=== PATIENT | female | born 1980 | race Caucasian/White ===

== ENCOUNTER → 2016-07-10 | Outpatient (CLI) | payer OTHER ==
[2016-07-10 17:26] LABS: Basophils % (A) 1 %; CH 31.1; CHCM 33.9; Eosinophils # (A) 0.1 k/uL (0-0.7); Eosinophils % (A) 2 %; HCT 40.9 % (34.0-46.0); HDW 2.69; HGB 13.7 gm/dL (11.4-16.0); Luc # (Auto) 0.06; Luc % (Auto) 1; Lymphocytes # (A) 2.2 k/uL (1.0-4.8); Lymphocytes % (A) 43 %; MCHC 33.5 g/dL (31.0-37.0); MCV 92.4 fL (80.0-100.0); Mean Platelet Volume 7.1; Monocytes # (A) 0.2 k/uL (0-1.0); Monocytes % (A) 5 %; Neutrophils # (A) 2.4 k/uL (1.3-7.7); Neutrophils % (A) 48 %; RBC 4.42 m/uL (3.80-5.40); RDW 12.4 % (11.5-15.5); WBC (Perox) 5.38
[2016-07-10 17:44] LABS: Anion Gap 14 mmol/L; Blood Urea Nitrogen 11 mg/dL (7-17); Carbon Dioxide 27 mmol/L (22-30); Chloride 104 mmol/L (98-107); Glucose 88 mg/dL (74-99); Non-African American GFR(MDRD) >60 (>60 ml/min/1.73 sqM); Potassium 3.6 mmol/L (3.5-5.1); Sodium 145 mmol/L (137-145)
== END | disposition home or self-care (01) ==
LOC: LABPAT 17:03
PROVIDERS: ATTEND Obstetrics & Gynecology
DX: Z01.812 Encounter for preprocedural laboratory examination (principal); D06.9 Carcinoma in situ of cervix, unspecified
CPT/HCPCS: 80051; 82565; 82947; 84520; 85025; 87086

== ENCOUNTER 2016-07-16 05:43 | Observation (INO) | payer OTHER ==
--- NOTE | 2016-07-09 14:21 | HP ---
DATE OF ADMISSION: This is a 35-year-old white female, 2, para 2-0-0-2 who on her routine gynecologic Pap smear on 04/12/2016 was noted to have low-grade lesion. Colposcopy in the office on 05/15/2016 revealed biopsies consistent with high grade MARTHA, ECC revealing adenocarcinoma in situ. The patient underwent conization under my care at [facility]. Subsequently, pathology report reveals positive ECC for adenocarcinoma in situ, margins of the cold knife conization are otherwise negative. This was performed on 06/11/2016. After thorough consultation, the patient is electing to proceed with vaginal hysterectomy. We have reviewed in detail the risks, benefits and alternatives of this plan. Review of systems is otherwise negative. She has had a tubal ligation in the past. PAST MEDICAL HISTORY: Significant for Hodgkin's lymphoma, in remission. PAST SURGICAL HISTORY: Diagnostic laparoscopy in 1997, hysteroscopy and NovaSure ablation and tubal ligation in the past, Port-A-Cath placed and removed, cold knife conization June 2016. CURRENT MEDICATIONS: None. ALLERGIES INCLUDE MACROBID TO WHICH SHE REPORTS NAUSEA, PENICILLIN TO WHICH SHE REPORTS NAUSEA, RASH AND HIVES, AND SUPRAX TO WHICH SHE REPORTS A RASH. FAMILY HISTORY: Significant for diabetes, shingles and stroke. Reproductive history: Patient has had 2 normal spontaneous vaginal delivery, a male and female infants, both healthy and well. SOCIAL HISTORY: Significant for alcohol 1 to 4 times weekly, she is currently single. She is a current smoker, smoking 1/2 pack per day tobacco and has been a smoker for many years, she denies any history of any other recreational drug use. On exam, this is a pleasant white female, 5 feet 7 inches, 156 pounds, BMI is 24, blood pressure 128/82. The general physical exam is within normal limits. HEENT exam reveals normal trachea in the midline, no thyromegaly or cervical lymphadenopathy, good dentition. Breasts are bilaterally symmetric with no skin dimpling, nipple discharge, axillary adenopathy, or any discernible lesions or masses. Chest is clear to auscultation in all simmons anteriorly and posteriorly. Cardiac exam reveals no murmur, click or rub. Regular rate and rhythm appreciated. ABDOMEN: Soft and nontender with active bowel sounds, no organosplenomegaly, no CVA tenderness. Extremities reveal no edema, good range of motion, good peripheral pulses, normal strength. Neurologic exam is completely intact. On pelvic exam, cervix is multiparous but recent conization and scarring changes are noted. Uterus is small, mobile, anteverted, anteflexed, smooth and nontender. Adnexa are negative to palpation bilaterally. Rectal exam reveals FIT negative stool, good sphincter tone, no foreign bodies or defects. IMPRESSION: A adenocarcinoma in situ on ECC, after cold knife conization of the cervix. Patient requesting permanent surgical palliation via vaginal hysterectomy. We will proceed with vaginal hysterectomy, ovaries will be inspected and left in situ if they are within normal limits to inspection. She does consent to oophorectomy if in my clinical judgment, the ovaries appear abnormal. She understands the risks of surgery to include bleeding, infection, perforation or damage to bowel, bladder, ureters or indeed any pelvic or abdominal organs. Second opinion has been offered and declined. I believe that this patient understands our discussion and risks and benefits as thoroughly reviewed. All questions answered.
[2016-07-15 10:49] VITALS: BMI 23.6
[2016-07-16] MEDS ORDERED: DEXAMETHASONE SOD PHOSPHATE 10 MG/ML 1 ML VIAL IV ONE (05:58)
[2016-07-16] MEDS ORDERED: MIDAZOLAM 2 MG/2 ML VIAL IV PRN (05:58)
[2016-07-16] MEDS ORDERED: ONDANSETRON 4 MG/2 ML VIAL IVP ONE (05:58)
[2016-07-16] MEDS ORDERED: HYDROmorphone 1 MG/ML 1 ML SYRINGE IVP PRN (05:58)
[2016-07-16] MEDS: LACTATED RINGERS 1,000 ML IV SCH ×2 (06:32→09:46)
[2016-07-16] MEDS ORDERED: LIDOCAINE 1% 20 ML VIAL (10MG/ML) FOR IV START INTRADERMA ONE (06:32)
[2016-07-16] MEDS ORDERED: SCOPOLAMINE 1.5MG/72HR PATCH TRANSDERM ONE (06:34)
[2016-07-16] MEDS: CLINDAMYCIN 900 MG in DEXTROSE 5% IN WATER 50 ML IVPB ONE ×4 (07:05→13:52)
[2016-07-16] MEDS ORDERED: SODIUM CHLORIDE 0.9% 100 ML BAG ONE (07:08)
[2016-07-16] MEDS ORDERED: MORPHINE SULFATE (PF) 0.3 MG/0.3 ML SYR ONE (07:08)
[2016-07-16] MEDS ORDERED: CLINDAMYCIN 150 MG/ML 6 ML VIAL ONE (07:08)
[2016-07-16] MEDS ORDERED: MIDAZOLAM 2 MG/2 ML VIAL ONE (07:08)
[2016-07-16] MEDS ORDERED: SODIUM CHLORIDE 0.9% 50 ML BAG ONE (07:08)
[2016-07-16] MEDS ORDERED: VASOPRESSIN 20 UNIT/ML 1 ML VIAL ONE (07:08)
[2016-07-16] MEDS ORDERED: fentaNYL (PF) 50 MCG/ML 2 ML AMP ONE (07:08)
[2016-07-16] MEDS ORDERED: PROPOFOL 10 MG/ML 20 ML VIAL IV ONE (07:08)
[2016-07-16] MEDS ORDERED: VASOPRESSIN 20 UNIT/ML 1 ML VIAL SQ ONE ×2 (07:10)
[2016-07-16] MEDS: GENTAMICIN 320 MG in SODIUM CHLORIDE 0.9% 100 ML IVPB ONE ×2 (07:14→13:53)
[2016-07-16] MEDS ORDERED: BACITRACIN 500 UNIT/GM OINT 28.4 GM TUBE TOPICAL ONE (07:36)
[2016-07-16] MEDS ORDERED: LACTATED RINGERS 1,000 ML IV ONE (07:40)
[2016-07-16] MEDS ORDERED: ZOLPIDEM 5 MG TAB PO PRN (08:04)
[2016-07-16] MEDS ORDERED: KETOROLAC 30 MG/ML 1 ML VIAL IVP PRN (08:04)
[2016-07-16] MEDS ORDERED: SIMETHICONE 80 MG CHEWABLE PO PRN (08:04)
[2016-07-16] MEDS ORDERED: ONDANSETRON 4 MG/2 ML VIAL IVP PRN ×2 (08:04→08:55)
[2016-07-16] MEDS ORDERED: METOCLOPRAMIDE 5 MG/ML 2 ML VIAL IVP PRN (08:04)
[2016-07-16] MEDS ORDERED: Acetaminophen-Codeine 300-30mg TAB PO PRN (08:04)
[2016-07-16] MEDS ORDERED: diphenhydrAMINE 50 MG/ML 1 ML VIAL IVP PRN (08:04)
--- NOTE | 2016-07-16 08:04 | P.OP ---
Date of Procedure: 07/16/16 Preoperative Diagnosis: Adenocarcinoma in situ of the cervix Postoperative Diagnosis: Pathology pending Procedure(s) Performed: Vaginal hysterectomy Anesthesia: spinal Surgeon: Nathaly Ibarra Machine Stone Polisher #1: Roxi Singh Estimated Blood Loss (ml): 25 IV fluids (ml): 1,200 Urine output (ml): 150 Pathology: other (Cervix and uterus) Condition: stable Disposition: PACU Description of Procedure: Patient is brought to the operating suite where a general anesthetic is administered without difficulty along with a spinal with Duramorph. The appropriate timeout is performed to assure proper patient and procedural identification. Urine hCG is negative. Clindamycin and gentamicin are given for prophylactic antibiotics, ALLERGIES noted. The cervix vagina perineal bodies are all prepped and draped in the usual sterile fashion. The bladder is drained for approximately 100 mL of clear yellow urine. The weighted speculum was placed into the vagina and the anterior lip of the cervix is grasped with a double-tooth tenaculum. The cervix was injected circumferentially with a dilute Pitressin solution. A [place] blade scalpel was used to incise the cervix circumferentially with a V like positioning in the back. Peritoneum is entered at 6:00, suture tied with 2-0 Vicryl held with a hemostat. The large billed speculum is then placed into the peritoneal cavity. At all times the bladder swept well from the operative field to avoid bladder and/or ureteral injury. Uterosacral ligament complex these are identified, cut and suture-ligated, and held with a hemostat for cuff closure. Uterine vasculature is next identified, clamped cut and suture ligated. 2 additional pedicles are taken superior to the vessels. Again, bladder is swept well from the operative field at all times. The anterior peritoneal cavity is entered, the uterus is "walked out" posteriorly, Armaan clamps are used across the final pedicles. The uterus and cervix are then removed and sent to pathology for evaluation. The remaining pedicles are tied securely with 0 Vicryl suture, flashed, and retied for excellent hemostasis. At this time all pedicles are reexamined and noted to be hemostatically intact. Ovaries also identified bilaterally, they are within normal limits to inspection and therefore left in situ. The speculum is then changed to the shallow billed speculum, the 2-0 Vicryl suture placed at 6:00 is brought around in a pursestring fashion to close the peritoneum. The uterosacral cardinal ligament complex these that were held, are now brought across to incorporate the opposite complex as well as vaginal mucosa to close the vaginal cuff. 2 additional [id number] sutures of 0 Vicryl are used for final cuff closure. The vagina is clean and dry. Dean catheter is reinserted fourth 50 mL of clear yellow urine. The vagina is packed with a 1 inch iodophor gauze with basic tracing. All sponge needle and instrument counts are correct at the end of this procedure. At the recovery room in very good condition with stable vital signs including pulse 81, blood pressure 94/54, 99% O2 saturation. Complications: None.
[2016-07-16] MEDS ORDERED: MORPHINE SULFATE 4 MG/ML SYRINGE IVP PRN (08:55)
[2016-07-16] MEDS ORDERED: NALOXONE 0.4 MG/ML 1 ML VIAL IV PRN (08:55)
[2016-07-16] MEDS ORDERED: ACETAMINOPHEN IV (For NPO) 1,000 MG in EMPTY BAG 1 BAG IVPB ONE (09:00)
[2016-07-16] MEDS: KETOROLAC 30 MG/ML 1 ML VIAL IVP SCH ×2 (11:11→18:46)
[2016-07-16] MEDS: diphenhydrAMINE 50 MG/ML 1 ML VIAL IVP PRN ×2 (11:17→18:46)
[2016-07-17] MEDS: KETOROLAC 30 MG/ML 1 ML VIAL IVP SCH ×2 (00:02→05:59)
[2016-07-17 08:00] VITALS: BP 95/51; PULSE 61; RESP 16; TEMP 98.2
[2016-07-17] MEDS ORDERED: ACETAMINOPHEN TAB 325 MG TAB PO PRN (08:05)
--- NOTE | 2016-07-17 08:07 | P.DS ---
Providers Date of admission: 07/17/16 02:28 Expected date of discharge: 07/17/16 Attending physician: Nathaly Ibarra Primary care physician: [facility] Hospital Course: This is a 35-year-old who presented for vaginal hysterectomy. Abnormal Pap smear" Cos[place] P revealed high-grade lesion. Cold knife conization 1 month ago revealed adenocarcinoma in situ with a positive ECC. Decision was made for vaginal hysterectomy, please see my dictated history and physical for details. Patient was admitted yesterday and underwent vaginal hysterectomy without issue. She did very well intraoperatively, estimated blood loss 25 mL, spinal with Duramorph was utilized, please see my dictated operative note for details. Ovaries appeared normal to inspection and were left in situ bilaterally. This morning the patient is doing very well. She is voiding, ambulating, and passing flatus without difficulty. Vital signs are stable and she is afebrile. Vaginal packing and Dean catheter have both been removed. She is tolerating regular food and is very steady. She has no complaints. Patient is being discharged home in very good condition. She will follow-up with me in the office in 2 weeks. I have given her prescription for Bactrim DS to be taken twice daily for 10 days for 2 gynecologic procedures within a short period of time. She will use [id number] Advil or Aleve as needed for pain. I reminded her no intercourse, tampons or douching. No driving for 2 weeks. No heavy lifting. She will call with any difficulties or complaints, with any heavy vaginal bleeding, with any pain not alleviated by over-the- counter products, or with any questions or concerns. Patient Condition at Discharge: Good Plan - Discharge Summary Discharge Medication List Acetaminophen Tab [Tylenol Tab] 500 mg PO Q6H PRN 06/10/16 [History] Cinnamon Bark [Cinnamon] 500 mg PO DAILY 06/10/16 [History] Follow up Appointment(s)/Referral(s): Nathaly Ibarra MD [STAFF PHYSICIAN] - 2 Weeks Discharge Disposition: HOME SELF-CARE
--- NOTE | 2016-07-17 10:33 | P.PN ---
Progress Note - Text Postoperative day 1 status post , vaginal hysterectomy, under spinal anesthesia , and intrathecal morphine given for postoperative analgesia, patient doing well , there is no anesthesia related complications, further management as per her primary team
== END 2016-07-17 11:33 | disposition home or self-care (01) ==
LOC: OR 05:43 → 4FBP 08:08 → OR 07-17 02:28 → 4FBP 07-17 02:28
PROVIDERS: ADMIT Obstetrics & Gynecology; ATTEND Obstetrics & Gynecology
DX: D06.9 Carcinoma in situ of cervix, unspecified (principal); N80.0 Endometriosis of uterus; Z85.71 Personal history of Hodgkin lymphoma; Z88.1 Allergy status to other antibiotic agents; Z88.0 Allergy status to penicillin; F17.210 Nicotine dependence, cigarettes, uncomplicated
CPT/HCPCS: 81025; 86900; 86901; 86850; 88309; 58260; G0378; J2250; J1200; J1100; J2274; J3010; J1885 ×2; J1170; J2704; 88307; 96374

== ENCOUNTER → 2021-12-01 | Outpatient (CLI) | payer OTHER ==
--- NOTE | 2021-12-01 14:36 | MR ---
EXAMINATION TYPE: MR shoulder LT wo con DATE OF EXAM: 12/01/2021 COMPARISON: None HISTORY: Left shoulder pain and limited range of motion for 7 months Multiplanar multiecho imaging of the left shoulder with no contrast. The biceps tendon is intact. Subscapularis tendon appears normal. The glenoid georgina appear intact. The supraspinatus tendon appears intact. AC joint appears normal. No subacromial impingement. There i s no evidence of focal bone destruction. No evidence of a fracture. No pathologic fluid collection. IMPRESSION: Normal MR scan of the left shoulder.
--- NOTE | 2021-12-01 14:40 | MR ---
EXAMINATION TYPE: MR cervical spine wo con DATE OF EXAM: 12/01/2021 COMPARISON: None HISTORY: Left arm numbness and tingling for 7 months Multiplanar multiecho imaging of the cervical spine with no contrast. There is mild straightening of the cervical spine. There is some mild degenerative disc space narrowi ng at C5-6 and C6-7. There is posterior mild disc bulging at C5-6 and C6-7. Spinal canal is narrowed to 7 mm at C5-6 which is the narrowest point. No spinal stenosis. Cervical spinal cord shows no edema . Brainstem appears intact. No compression fracture. There is no cervical paraspinal mass. No significant neural foraminal narrowing. No compression fract ure. IMPRESSION: Mild posterior disc bulging in the lower cervical spine. No spinal stenosis. No fracture.
== END | disposition home or self-care (01) ==
LOC: RADMRIMAIN 08:30
PROVIDERS: ATTEND Family Medicine
DX: M50.222 Other cervical disc displacement at C5-C6 level (principal); M25.512 Pain in left shoulder
CPT/HCPCS: 72141